=== PATIENT | male | born 1990 | race Caucasian/White ===

== ENCOUNTER 2021-11-02 13:12 | Emergency (ER) | payer MEDICAID ==
[~2021-11-02] VITALS: Ht 167.6 cm; Wt 82.0 kg
[2021-11-02] MEDS ORDERED: BACITRACIN ZINC OINT UDPKT TOP ONE ×2 (13:45→14:45)
[2021-11-02] MEDS ORDERED: LIDOCAINE HCL/EPINEPHRINE 1%-EPI 1:100,000 20 ML VIAL INFIL ONE (13:45)
[2021-11-02] MEDS ORDERED: TETANUS, DIPHTHERIA, PERTUSSIS VAC/PF 0.5ML (>10YR OLD) IM ONE (14:45)
[2021-11-02] MEDS ORDERED: IBUPROFEN 600MG TABLET PO ONE (14:45)
[2021-11-02 16:21] VITALS: BP 107/45
[2021-11-02] MEDS ORDERED: HYDROCODONE/ACETAMINOPHEN 5/325MG TABLET PO STA (16:21)
[2021-11-02] MEDS ORDERED: DIPHENHYDRAMINE 25MG CAPSULE PO ONE (16:30)
[2021-11-02] MEDS ORDERED: CEPHALEXIN 250MG CAPSULE PO NR (18:15)
[2021-11-02] MEDS ORDERED: CEPH500C2 PO (18:22)
[2021-11-02] MEDS ORDERED: HYDR-4622 TP (18:22)
[2021-11-02] MEDS ORDERED: IBUP-2029 PO (18:22)
== END 2021-11-02 18:52 | disposition home or self-care (01) ==
LOC: EDBD → ER 13:22
DX: S01.81XA Laceration without foreign body of other part of head, initial encounter (principal); S01.112A Laceration without foreign body of left eyelid and periocular area, initial encounter; L25.9 Unspecified contact dermatitis, unspecified cause; X99.0XXA Assault by sharp glass, initial encounter; Y93.89 Activity, other specified; Y92.512 Supermarket, store or market as the place of occurrence of the external cause
CPT/HCPCS: 12014; 70450; 90471; 90715; 99284; Q0163

== ENCOUNTER 2021-11-04 18:55 | Emergency (ER) | payer MEDICAID ==
[~2021-11-04] VITALS: Ht 170.2 cm; Wt 77.0 kg
[~2021-11-04 18:55] MED LIST: CEPH500C2 PO; HYDR-4622 TP; IBUP-2029 PO
[2021-11-04 19:04] VITALS: BP 112/73
== END 2021-11-04 20:00 | disposition left against medical advice (07) ==
LOC: EDBD 18:55 → ER 18:55
DX: Z53.21 Procedure and treatment not carried out due to patient leaving prior to being seen by health care provider (principal)

== ENCOUNTER 2021-11-08 14:06 | Emergency (ER) | payer MEDICAID ==
[~2021-11-08] VITALS: Ht 165.1 cm; Wt 81.0 kg
[2021-11-08 14:14] VITALS: BP 132/83
[2021-11-08] MEDS ORDERED: TOPUD PO (15:43)
[2021-11-08] MEDS ORDERED: IBUP-2028 MT (15:43)
== END 2021-11-08 16:15 | disposition home or self-care (01) ==
LOC: ER 14:06
DX: S06.0X0A Concussion without loss of consciousness, initial encounter (principal); X58.XXXA Exposure to other specified factors, initial encounter; Y93.89 Activity, other specified; Y92.89 Other specified places as the place of occurrence of the external cause; Y99.8 Other external cause status; Z87.891 Personal history of nicotine dependence; Z79.899 Other long term (current) drug therapy
CPT/HCPCS: 99282